=== PATIENT | male | born 1940 | race Caucasian/White ===

== ENCOUNTER 2016-02-27 13:00 | Outpatient (RCR) | payer MEDICARE | END 2016-02-27 15:00 | disposition home or self-care (01) | LOC: PT 13:00 | PROVIDERS: ATTEND Family Medicine | DX: M25.562 Pain in left knee (principal); M25.561 Pain in right knee; M79.605 Pain in left leg; M79.604 Pain in right leg; R29.898 Other symptoms and signs involving the musculoskeletal system | CPT/HCPCS: 97001; 97016; 97035; 97110; 97112; G8978; G8979; G8980 ==

== ENCOUNTER 2016-05-31 19:13 | Emergency (ER) | payer MEDICARE ==
[~2016-05-31] VITALS: Ht 177.8 cm; Wt 88.6 kg
[~2016-05-31 19:13] MED LIST: AC325T PO; ALLO100T PO; ALLO300T2 PO; AMIO200T2 PO; ASPI-504 PO; ATOR80TA PO; BISA10SU6 RC; BISM262O PO; CEPH500C PO; CHOL500050 PO; CYAN10004 IJ; DONE5TAB4 PO; DUONEB 0.5 MG-33 ML INH; ESCI10TA PO; FAMO20TA13 PO; FESO45ML PO; FLUO90CA4 PO; FLX20C PO; INSASP1U SQ; INSU100V32 SC; INSU100V6 SC; MAG30ORA PO; MAGN800O PO; METF-760 PO; METF1000 PO; METF500T4 PO; METO25TA60 PO; MULT-850 PO; NOVALOG SC; NTR.4SL SL; OMEG1CAP57 PO; OMEG300C3 PO; PANT40TA3 PO; POLY1DRO2 OU; SIMV80TA3 PO; SOTA120T PO; lantus; novalog; vitamin b 12
--- OUTSIDE RECORDS SUMMARY | 2016-05-31 19:18 | XMS REPORT ---
Author Author Akil Montez [facility] eClinicalWorks Address Unknown Phone Unavailable Care Team Providers Care State Tested Nursing Assistant Name Role Phone Akil Montez CP Unavailable Allergies, Adverse Reactions, Alerts Substance Reaction Event Type N.K.D.A. 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 Assessment Ventricular tachycardia I47.2 Active Assessment CAD (coronary artery disease) I25.10 Active Medications Medication Code System Code Instructions Start Date End Date Status Dosage Metformin HCl [facility] [address]-10 1000 MG Orally asdir 1 1/2 tablets Fluoxetine HCl [facility] [address]-18 20 MG Orally Once a day 1 capsule in the morning NovoLog [facility] [address]-05 100 UNIT/ML Subcutaneous not defined Omeprazole [facility] [address]-20 20 MG Orally Once a day 2 capsules Allopurinol [facility] [address]-53 300 MG Orally Once a day 1 tablet Vitamin D-3 [facility] [address]-96 5000 UNIT Orally not defined Lantus [facility] [address]-57 100 UNIT/ML Subcutaneous not defined Iron [facility] [address]-37 142 (45 Fe) MG Orally Once a day 1 tablet Sotalol HCl [facility] [address]-45 80 MG Orally Twice a day 1 tablet Simvastatin [facility] [address]-85 80 MG Orally Once a day 1 tablet in the evening Fish Oil [facility] [address]-60 1000 MG Orally Twice a day 1 capsule Procedures Procedure Coding System Code Date Ofc Program ICD Dual, Staff CPT-4 14571 Sep 21, 2015 Office Visit, Est Pt., Level 4 CPT-4 41466 Sep 21, 2015 Vital Signs Date/Time: Sep 21, 2015 BMI 26.30 Index Weight 188.6 lbs Height 5 ft 11 in in Cardiac Monitoring Heart Rate 74 /min Oximetry 98 % Blood Pressure Diastolic 70 mm Hg Blood Pressure Systolic 108 mm Hg Results No Known Results Summary Purpose eClinicalWorks Submission
--- NOTE | 2016-05-31 19:30 | NUR ---
APPLIED STERI STRIPS AND TEGADERM TO WOUNDS
--- NOTE | 2016-05-31 20:00 | NUR ---
PT TEACHING ABOUT LEAVING TEGADERM AND STERISTIPS IN PLACE UNTIL THEY FLAKE OF ON THEIR OWN. PT AND UNDERSTOOD INSTRUCTIONS.
[2016-05-31 20:59] VITALS: BP 146/71
== END 2016-05-31 20:15 | disposition home or self-care (01) ==
LOC: ED 19:15
DX: S51.812A Laceration without foreign body of left forearm, initial encounter (principal); W10.9XXA Fall (on) (from) unspecified stairs and steps, initial encounter; Y92.39 Other specified sports and athletic area as the place of occurrence of the external cause
CPT/HCPCS: 99281; 99282